=== PATIENT | male | born 1980 | race Caucasian/White ===

== ENCOUNTER 2018-08-24 19:20 | Emergency (ER) | payer OTHER ==
[2018-08-24] MEDS ORDERED: Lidocaine 1% MPF* 2 ML VIAL INJ ONE (21:14)
[2018-08-24] MEDS ORDERED: Amoxicillin/Clavulanate TAB* 875 MG PO ONE (22:00)
--- NOTE | 2018-08-24 22:02 | ED ---
Bite Injury/Animal - HPI Summary HPI Summary: 38 year old male presents with dog bite to his right hand. States he was accidentally bit by his own dog around 15:00 today. States dog is up to date with immunizations. He has had a tetanus shot withint the past 5 years. Bleeding controlled prior to arrival. - History of Current Complaint Chief Complaint: EDAnimalBite Stated Complaint: DOG BITE PER PT Time Seen by Provider: 08/24/18 20:54 Hx Obtained From: Patient Pain Intensity: 0 - Allergies/Home Medications Allergies/Adverse Reactions: Allergies Allergy/AdvReac Type Severity Reaction Status Date / Time No Known Allergies Allergy Verified 08/24/18 19:26 PMH/Surg Hx/FS Hx/Imm Hx Previously Healthy: Yes - Denies significant PMH - Immunization History Immunizations Up to Date: Yes Infectious Disease History: No Infectious Disease History: Denies: Traveled Outside the in Last 30 Days - Social History Occupation: Employed Full-time Lives: With Family Alcohol Use: Occasionally Substance Use Type: Reports: None Smoking Status (MU): Never Smoked Tobacco Review of Systems Negative: Fever, Chills Cardiovascular: Negative Respiratory: Negative Gastrointestinal: Negative Genitourinary: Negative Negative: Arthralgia, Decreased ROM Positive: Other - See HPI Neurological: Negative All Other Systems Reviewed And Are Negative: Yes Physical Exam - Summary Physical Exam Summary: GENERAL APPEARANCE: Well developed, well nourished, alert and cooperative, and appears to be in no acute distress. CARDIAC: Normal S1 and S2. No S3, S4 or murmurs. Rhythm is regular. There is no peripheral edema, cyanosis or pallor. Extremities are warm and well perfused. Capillary refill is less than 2 seconds. Peripheral pulses intact. LUNGS: Clear to auscultation without rales, rhonchi, wheezing or diminished breath sounds. ABDOMEN: Positive bowel sounds. Soft, nondistended, nontender. No guarding or rebound. No masses or hepatosplenomegally. MUSKULOSKELETAL: ROM intact to all extremities. No joint erythema or tenderness. Normal muscular development. EXTREMITIES: Multiple superficial puncture wounds to the right hand with a 1.5 cm superficial laceration to the thenar aspect of the right hand (see diagram). SKIN: Skin normal color, texture and turgor. Triage Information Reviewed: Yes Vital Signs On Initial Exam: Initial Vitals Temp Pulse Resp BP Pulse Ox 98.2 F 84 16 125/82 96 08/24/18 19:20 04 19:20 04 19:20 08/24/18 19:20 08/24/18 19:20 Vital Signs Reviewed: Yes Procedures - Procedure Summary Procedure Summary: Procedure note: Laceration repair right hand Informed consent was obtained before procedure started and the appropriate timeout was taken. The area was prepped and draped in the usual sterile fashion. Local anesthesia was achieved using 2 ml of lidocaine 1% without epinephrine. The wound was thoroughly explored, no FB noted. The wound as well as the puncture wounds were copiously irrigated. The wound margins were brought into good alignment and 3 interrupted sutures were placed using 4-0 Ethilon. Estimated blood loss was minimal. A dressing was applied to the area. Anticipatory guidance, as well as standard post-procedure care was discussed with patient. Return precautions are given. The patient tolerated the procedure well without complications. Patient is to follow up in 7-20 days for suture removal and evaluation of the laceration. Diagnostics - Vital Signs Vital Signs Temp Pulse Resp BP Pulse Ox 08/24/18 20:10 97.5 F 91 18 115/78 95 08/24/18 19:20 98.2 F 84 16 125/82 96 - Laboratory Lab Statement: Any lab studies that have been ordered have been reviewed, and results considered in the medical decision making process. Bite Injury Course/Dx - Course Course Of Treatment: 38 year old male presents with dog bite to his right hand. States he was accidentally bit by his own dog around 15:00 today. States dog is up to date with immunizations. He has had a tetanus shot withint the past 5 years. Bleeding controlled prior to arrival. Afebrile. VSS. Exam remarkable for multiple superficial puncture wounds and a 1.5 cm superficial laceration to the thenar aspect of the right hand (see diagram). The puncture wounds and lacerations were thoroughly irrigated and the laceration repaired with 3 interrupted sutures using 4-0 Ethilon. I placed him on a 5 day course of Augmentin 875 mg BID x 5 days for infection prophylaxis. He is to have the sutures removed in 7-10 days. Wound care, anticipatory guidance, and warning symptoms were reviewed with the patient. Verbalizes understanding and agrees with POC. - Diagnoses Differential Diagnosis/HQI/PQRI: Positive: Laceration, Rabies Exposure, Other - Dog bite Provider Diagnosis: Dog bite of right hand, Laceration of right hand Images - Images Hands: 1 - 1.5 cm laceration 2 - Superficial puncture wound 3 - superficial puncture wound 4 - Small superficial skin tear Discharge - Sign-Out/Discharge Documenting (check all that apply): Patient Departure Patient Received Moderate/Deep Sedation with Procedure: No - Discharge Plan Condition: Stable Disposition: HOME Prescriptions: Amoxicillin/Clavulanate TAB* [Augmentin TAB 875*] 875 mg PO BID #9 tab Patient Education Materials: Animal Bite (ED), Care For Your Stitches (ED), Laceration (ED) Referrals: Juancarlos Velasquez DO [Primary Care Provider] - Additional Instructions: Your laceration was repaired tonight using 3 stitches. Clean the wound(s) at least twice a day with a mild soap and water. You may shower as normal but should avoid submerging the hand under water. Apply a small amount of an antibiotic ointment such as Bacitracin and apply a bandage over the wound(s). Take Augmentin 875 mg 1 tab twice a day for 5 days to prevent infection. We gave you the first dose in the emergency room. Take with food to avoid upset stomach. Be sure to take the entire course. Take acetaminophen (Tylenol) or ibuprofen (Advil, Motrin) according to directions as needed for pain. Return to the emergency, urgent care, or your primary care provided in 7-10 days to have the sutures removed. Watch for signs of infection including severe pain not managed with pain medication, redness that spreads, swelling of the hand or fingers, pus draining from the wound, or fever greater than 100.5 F. Seek immediate medical attention should any of these occur. - Billing Disposition and Condition Condition: STABLE Disposition: Home
[2018-08-24 22:30] VITALS: BP 115/71
== END 2018-08-24 22:25 | disposition home or self-care (01) ==
LOC: ED 19:20
DX: S61.451A Open bite of right hand, initial encounter (principal); W54.0XXA Bitten by dog, initial encounter
CPT/HCPCS: 12001; 99282; A9270-GY

== ENCOUNTER → 2018-09-01 07:19 | Emergency (ER) | payer OTHER ==
--- NOTE | 2018-09-01 07:36 | ED ---
Skin Complaint - HPI Summary HPI Summary: Patient is a 38-year-old male who presents to the emergency department for suture removal from right hand. Patient was seen in the ER 8 days ago for laceration to right hand after being bit by a dog. Patient taking Augmentin. Patient denies fever, chills, redness, swelling or drainage from wound. Symptoms are mild in severity. No current modifying factors. - History of Current Complaint Chief Complaint: EDLacSutureRecheck Time Seen by Provider: 09/01/18 07:33 Stated Complaint: NEEDS STITCHES REMOVED Hx Obtained From: Patient Pain Intensity: 0 - Allergy/Home Medications Allergies/Adverse Reactions: Allergies Allergy/AdvReac Type Severity Reaction Status Date / Time No Known Allergies Allergy Verified 08/24/18 19:26 PMH/Surg Hx/FS Hx/Imm Hx Previously Healthy: Yes Infectious Disease History: No Infectious Disease History: Denies: Traveled Outside the [place] in Last 30 Days - Family History Known Family History: Positive: Non-Contributory - Social History Occupation: Employed Full-time Lives: With Family Alcohol Use: Occasionally Substance Use Type: Reports: None Smoking Status (MU): Never Smoked Tobacco Review of Systems Constitutional: Negative Negative: Fever, Chills Positive: Other - Suture to wound on right hand All Other Systems Reviewed And Are Negative: Yes Physical Exam Triage Information Reviewed: Yes Vital Signs On Initial Exam: Initial Vitals Temp Pulse Resp BP Pulse Ox 97.6 F 84 18 117/84 96 09/01/18 07:24 09/01/18 07:24 09/01/18 07:24 09/01/18 07:24 09/01/18 07:24 Vital Signs Reviewed: Yes Appearance: Positive: Well-Appearing - Pt. sitting on bed in NAD. Skin: Positive: Warm, Dry Head/Face: Positive: Normal Head/Face Inspection Eyes: Positive: Normal, EOMI Neck: Positive: Supple Musculoskeletal: Positive: Other - 1cm healing wound with sutures to the base of thumb on right hand. No surrouding erythema or edema. No drainage. Full ROM of digits. Neurological: Positive: Normal, CN Intact II-III Psychiatric: Positive: Affect/Mood Appropriate Procedures - Procedure Summary Procedure Summary: 3 sutures removed from wound on the right hand at the base of the right thumb. No signs of infection. Wound is well approximated. Diagnostics - Vital Signs Vital Signs Temp Pulse Resp BP Pulse Ox 09/01/18 07:24 97.6 F 84 18 117/84 96 - Laboratory Lab Statement: Any lab studies that have been ordered have been reviewed, and results considered in the medical decision making process. Course/Dx - Diagnoses Provider Diagnoses: Encounter for removal of sutures Discharge - Sign-Out/Discharge Documenting (check all that apply): Patient Departure Patient Received Moderate/Deep Sedation with Procedure: No - Discharge Plan Condition: Good Disposition: HOME Patient Education Materials: Acute Wound Care (ED) Referrals: Juancarlos Velasquez DO [Primary Care Provider] - Additional Instructions: Follow up with PCP or return to ER for redness, swelling, drainage from wound Keep wound clean and dry Recommend keeping wound covered at work - Billing Disposition and Condition Condition: GOOD Disposition: Home
[2018-09-01 07:50] VITALS: BP 120/76
== END | disposition home or self-care (01) ==
LOC: ED 07:19
DX: Z48.02 Encounter for removal of sutures (principal)
CPT/HCPCS: 99282

== ENCOUNTER 2019-07-13 11:09 | Emergency (ER) | payer BC, OTHER ==
[2019-07-13 11:19] VITALS: BP 121/81
[2019-07-13 12:31] LABS: Influenza A Molecular Negative (Negative); Influenza B Molecular Negative (Negative)
--- NOTE | 2019-07-13 13:02 | UC ---
Respiratory Complaint HPI - HPI Summary HPI Summary: 5 DAYS AGO HAD A STOMACH BUG WITH NAUSEA/VOMITING AND DIARRHEA. THOSE SYMPTOMS HAVE SINCE RESOLVED BUT FOR THE PAST COUPLE OF DAYS HAS BEEN COUGHING AND SNEEZING. NO FEVER, HEADACHE, BODY ACHES. 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 - History of Current Complaint Chief Complaint: UCGeneralIllness Stated Complaint: WANTS FLU SWAB Time Seen by Provider: 07/13/19 12:17 Hx Obtained From: Patient Onset/Duration: Gradual Onset, Lasting Days, Still Present Timing: Constant Severity Initially: Moderate Severity Currently: Moderate Pain Intensity: 0 Pain Scale Used: 0-10 Numeric Character: Cough: Nonproductive Aggravating Factors: Nothing Alleviating Factors: Nothing Associated Signs And Symptoms: Positive: URI. Negative: Dyspnea, Fever, Wheezing - Allergies/Home Medications Allergies/Adverse Reactions: Allergies Allergy/AdvReac Type Severity Reaction Status Date / Time No Known Allergies Allergy Verified 07/13/19 11:18 Home Medications: Home Medications NK [No Home Medications Reported] 07/13/19 [History Confirmed 07/13/19] PMH/Surg Hx/FS Hx/Imm Hx Previously Healthy: Yes - Surgical History Surgical History: Yes Surgery Procedure, Year, and Place: appy,vascular surgeries bi lat legs - Family History Known Family History: Positive: Non-Contributory - Social History Alcohol Use: Occasionally Substance Use Type: None Smoking Status (MU): Never Smoked Tobacco Review of Systems All Other Systems Reviewed And Are Negative: Yes Constitutional: Positive: Fatigue ENT: Positive: Nasal Discharge Respiratory: Positive: Cough Cardiovascular: Positive: Negative Gastrointestinal: Positive: Negative Physical Exam Triage Information Reviewed: Yes Appearance: Well-Appearing, No Pain Distress, Well-Nourished Vital Signs: Initial Vital Signs Temp 99.2 F 07/13/19 11:15 Pulse 85 07/13/19 11:15 Resp 18 07/13/19 11:15 BP 121/81 07/13/19 11:15 Pulse Ox 98 07/13/19 11:15 Laboratory Tests 07/13/19 12:20 Influenza A (Rapid) Negative Influenza B (Rapid) Negative Vital Signs Reviewed: Yes Eyes: Positive: Conjunctiva Clear ENT: Positive: Hearing grossly normal, Pharynx normal, TMs normal Neck: Positive: Supple, Nontender, No Lymphadenopathy Respiratory Exam: Normal Cardiovascular Exam: Normal Abdomen Description: Positive: Nontender, Soft Musculoskeletal: Positive: No Edema Neurological: Positive: Alert Psychological: Positive: Age Appropriate Behavior Skin: Negative: Rashes Respiratory Course/Dx - Course Course Of Treatment: FLU SWAB NEGATIVE. LIKELY VIRALLY MEDIATED SYMPTOMS THAT SHOULD RESOLVE ON THEIR OWN WITH TIME. REST, HYDRATE, OTC MEDS NEEDED. NOTE FOR WORK PROVIDED. FOLLOW-UP IF NEEDED. - Differential Dx/Diagnosis Provider Diagnosis: Upper respiratory infection Discharge ED - Sign-Out/Discharge Documenting (check all that apply): Patient Departure All imaging exams completed and their final reports reviewed: No Studies - Discharge Plan Condition: Stable Disposition: HOME Patient Education Materials: Upper Respiratory Infection (ED) Forms: *Work Release Referrals: Juancarlos Velasquez DO [Primary Care Provider] - If Needed Additional Instructions: FLU NEGATIVE. YOUR SYMPTOMS ARE LIKELY VIRALLY MEDIATED AND SHOULD RESOLVE ON THEIR OWN WITH TIME. NO INDICATION FOR ANTIBIOTICS AT PRESENT. REST, HYDRATE, OTC MEDS NEEDED. SEEK FOLLOW-UP IF YOU ARE NOT IMPROVING OVER THE NEXT 1-2 WEEKS. - Billing Disposition and Condition Condition: STABLE Disposition: Home
== END 2019-07-13 12:59 | disposition home or self-care (01) ==
LOC: UCEAST 11:09
DX: J06.9 Acute upper respiratory infection, unspecified (principal)
CPT/HCPCS: 99211; G0463